=== PATIENT | female | born 1990 | race Hispanic/Latino ===

== ENCOUNTER 2016-09-22 20:56 | Emergency (ER) | payer OTHER ==
[~2016-09-22] VITALS: Ht 154.9 cm; Wt 87.1 kg
[2016-09-22] MEDS ORDERED: NS 1,000 ML IV SCH (21:34)
[2016-09-22] MEDS ORDERED: ONDANSETRON 4MG/2ML VIAL (J2405) IV ONE (21:45)
[2016-09-22] MEDS ORDERED: MORPHINE 2 MG/ML 1ML SYRINGE IV PRN (21:45)
[2016-09-22 22:09] LABS: BASO % 0.3 % (0.0-1.0); EOS # 0.1 K/mm3 (0.0-0.50); EOS % 1.2 % (0.0-3.0); LARGE UNSTAINED CELL # 0.1 K/mm3 (0.0-0.4); LARGE UNSTAINED CELL % 1.2 % (0.0-4.0); LYMPH # 2.8 K/mm3 (1.5-6.5); LYMPH % 33.8 % (24.0-44.0); MEAN CORPUSCULAR HEMOGLOBIN 31.7 pg (27.0-33.0); MEAN CORPUSCULAR HGB CONC 33.5 g/dl (32.0-36.5); MEAN CORPUSCULAR VOLUME 94.5 fl (80.0-96.0); MONO # 0.2 K/mm3 (0.0-0.8); MONO % 2.6 % (0.0-5.0); NEUTROPHILS # 5.1 K/mm3 (1.8-7.7); NEUTROPHILS % 60.8 % (36.0-66.0); PLATELET COUNT, AUTOMATED 285 k/mm3 (150-450); RED CELL DISTRIBUTION WIDTH 12.5 % (11.5-14.5); WHITE BLOOD COUNT 8.4 K/mm3 (4.0-10.0)
[2016-09-22 22:16] LABS: INR 0.92
[2016-09-22 22:27] LABS: CONTROL LINE HCG INT CTR LINE PRESENT
[2016-09-22 22:35] LABS: ALBUMIN 3.9 GM/DL (3.2-5.2); ALBUMIN/GLOBULIN RATIO 0.98 (1.00-1.93); ALKALINE PHOSPHATASE 95 U/L (45-117); ALT/SGPT 26 U/L (12-78); ANION GAP 6 MEQ/L (8-16); AST/SGOT 15 U/L (15-37); BILIRUBIN,DIRECT < 0.1 MG/DL (0.0-0.2); BILIRUBIN,TOTAL 0.2 MG/DL (0.2-1.0); BLOOD UREA NITROGEN 12 MG/DL (7-18); CALCIUM LEVEL 8.5 MG/DL (8.5-10.1); CARBON DIOXIDE LEVEL 30 MEQ/L (21-32); CHLORIDE LEVEL 103 MEQ/L (98-107); GLOMERULAR FILTRATION RATE > 60.0 (>60); GLUCOSE, FASTING 107 MG/DL (70-105); POTASSIUM SERUM 3.6 MEQ/L (3.5-5.1); SODIUM LEVEL 139 MEQ/L (136-145); TOTAL PROTEIN 7.9 GM/DL (6.4-8.2)
[2016-09-22] MEDS ORDERED: ZOFR4TAB3 PO (23:58)
[2016-09-23 00:05] VITALS: BP 118/66
--- NOTE | 2016-09-23 00:10 | REPUSA ---
Clinical history: Pain. Findings: Real-time transabdominal ultrasound images of the pelvis were obtained. An anteverted uteru s is noted, measuring 12.0 x 4.1 x 6.4 cm. The uterus demonstrates normal echotexture and echogenicit y. The endometrial stripe measures 8 mm and is within normal limits. The right ovary measures 3.7 x 1 .9 x 2.0 cm, containing a 1.5 cm follicle. The left ovary measures 2.9 x 1.8 x 1.5 cm. No adnexal mas ses are seen. Color Doppler flow is seen within both ovaries. There is no evidence of free fluid. Impression: Unremarkable ultrasound examination of the pelvis.
== END 2016-09-23 00:08 | disposition home or self-care (01) ==
LOC: M ED 21:32
DX: R10.31 Right lower quadrant pain (principal)
CPT/HCPCS: 76856; 80048; 80076; 81001; 83690; 84703; 85025; 85610; 87088; 87186; 96361; 96374; 96375; 99282; J2405

== ENCOUNTER 2017-08-27 00:46 | Emergency (ER) | payer OTHER ==
[2017-08-27] MEDS: NORCO 5/325MG TABLET (BULK FOR ED) PO (01:30)
[2017-08-27] MEDS: AUGMENTIN 875 MG TAB PO (01:30)
[2017-08-27] MEDS ORDERED: AUGMENTIN BID 400MG/5ML SUSP 50ML BTL PO (01:45)
== END 2017-08-27 01:46 | disposition home or self-care (01) ==
LOC: M ED 00:46
DX: H66.93 Otitis media, unspecified, bilateral (principal)
CPT/HCPCS: 99282

== ENCOUNTER → 2017-09-08 | Outpatient (REF) | payer OTHER | LOC: M SFHCLERA 17:37 | DX: B37.9 Candidiasis, unspecified (principal) | CPT/HCPCS: 87186 ==

== ENCOUNTER → 2018-02-14 | Outpatient (CLI) | payer OTHER ==
[2018-02-14 15:45] LABS: C REACTIVE PROTEIN QUANTITATIV 0.55 MG/DL (0.00-0.30)
[2018-02-14 15:47] LABS: ERYTHROCYTE SEDIMENTATION RATE 50 mm/hr (0-20)
[2018-02-16 14:10] LABS: TISSUE TRANSGLUTAMINASE IgA <2 U/mL (0-3)
[2018-02-19 08:06] LABS: IGASUB3 43.4 mg/dL (13.4-97.9); IgA SERUM (part of Subclasses) 345 mg/dL (87-352)
== END ==
LOC: M LAB 14:43
DX: R19.7 Diarrhea, unspecified (principal)
CPT/HCPCS: 82784

== ENCOUNTER → 2018-02-18 | Outpatient (REF) | payer OTHER ==
[2018-02-27 14:16] LABS: CALPROTECTIN STOOL <16 ug/g (0-120); O+P EXAM Final report (.)
[2018-02-27 14:16] LABS: PANCREATIC ELASTASE STOOL >500 (>200)
== END ==
LOC: M LAB REF 13:02
DX: R19.7 Diarrhea, unspecified (principal)

== ENCOUNTER 2018-03-08 08:47 | Day surgery (SDC) | payer OTHER ==
[~2018-03-08 08:47] MED LIST: NS 1,000 ML IV
[2018-03-08] MEDS ORDERED: PROPOFOL 200 MG/20 ML VIAL As Ordered ×3 (10:20→10:24)
[2018-03-08] MEDS ORDERED: LIDOCAINE 2% INJ 100 MG/5 ML SDV (FOR ANES.) As Ordered (10:20)
== END 2018-03-08 11:30 | disposition home or self-care (01) ==
LOC: M OPP 11:30
DX: R92.1 Mammographic calcification found on diagnostic imaging of breast (principal); K52.9 Noninfective gastroenteritis and colitis, unspecified; K62.89 Other specified diseases of anus and rectum; K64.8 Other hemorrhoids; K58.9 Irritable bowel syndrome, unspecified; F41.9 Anxiety disorder, unspecified
CPT/HCPCS: 45380

== ENCOUNTER 2018-03-13 15:00 | Day surgery (SDC) | payer OTHER ==
[2018-03-13 15:43] LABS: HEMATOCRIT 37.6 % (36.0-47.0); HEMOGLOBIN 12.6 g/dl (12.0-15.5); MEAN CORPUSCULAR HEMOGLOBIN 31.7 pg (27.0-33.0); MEAN CORPUSCULAR HGB CONC 33.5 g/dl (32.0-36.5); MEAN CORPUSCULAR VOLUME 94.5 fl (80.0-96.0); PLATELET COUNT, AUTOMATED 294 10^3/uL (150-450); RED BLOOD COUNT 3.98 10^6/uL (4.00-5.40); RED CELL DISTRIBUTION WIDTH 12.3 % (11.5-14.5); WHITE BLOOD COUNT 14.1 10^3/uL (4.0-10.0)
[2018-03-13] MEDS ORDERED: ACETAMINOPHEN 650 MG SUPP PR ×2 (15:45)
[2018-03-13 15:53] LABS: ANION GAP 9 MEQ/L (8-16); BLOOD UREA NITROGEN 8 MG/DL (7-18); CALCIUM LEVEL 8.9 MG/DL (8.5-10.1); CARBON DIOXIDE LEVEL 26 MEQ/L (21-32); CHLORIDE LEVEL 106 MEQ/L (98-107); CREATININE FOR GFR 0.69 MG/DL (0.55-1.30); GLOMERULAR FILTRATION RATE > 60.0 (>60); GLUCOSE, FASTING 102 MG/DL (70-100); POTASSIUM SERUM 3.7 MEQ/L (3.5-5.1); SODIUM LEVEL 141 MEQ/L (136-145)
[2018-03-13] MEDS: LR 1,000 ML IV ×2 (16:30)
[2018-03-13 16:45] LABS: CONTROL LINE UCG INT CTR LINE PRESENT; URINE PREG TEST NEGATIVE (NEGATIVE)
[2018-03-13] MEDS ORDERED: ACETAMINOPHEN TAB 650MG DOSE (2X325MG) As Ordered ×2 (17:43)
[2018-03-13] MEDS: ACETAMINOPHEN TAB 650MG DOSE (2X325MG) PO ×2 (17:50)
[2018-03-13] MEDS: GENTAMICIN 80 MG in APPROPRIATE DILUENT 1 EA IV (19:40)
[2018-03-13] MEDS ORDERED: dexameTHASONE 4 MG/ML 1ML VIAL (J1100) As Ordered ×2 (19:47)
[2018-03-13] MEDS ORDERED: MIDAZOLAM INJ 2 MG/2 ML VIAL (J2250) As Ordered ×2 (19:47)
[2018-03-13] MEDS ORDERED: PROPOFOL 200 MG/20 ML VIAL As Ordered ×2 (19:47)
[2018-03-13] MEDS ORDERED: KETOROLAC 60 MG/2 ML VIAL (J1885) As Ordered ×2 (19:47)
[2018-03-13] MEDS ORDERED: LIDOCAINE 2% INJ 100 MG/5 ML SDV (FOR ANES.) As Ordered ×2 (19:47)
[2018-03-13] MEDS ORDERED: ONDANSETRON 4MG/2ML VIAL (J2405) As Ordered ×2 (19:47)
[2018-03-13] MEDS ORDERED: fentaNYL 100 MCG/2 ML INJECTION (J3010) As Ordered ×2 (19:48)
[2018-03-13] MEDS: CLINDAMYCIN 900 MG in APPROPRIATE DILUENT 1 EA IV (20:30)
[2018-03-13] MEDS: BUPIVACAINE HCL 0.5% 10 ML VIAL As Ordered ×2 (21:21)
[2018-03-13] MEDS: LIDOCAINE 2% MDV 20 ML VIAL As Ordered ×2 (21:21)
[2018-03-13] MEDS ORDERED: ONDANSETRON 4MG/2ML VIAL (J2405) IV ×2 (21:45)
[2018-03-13] MEDS ORDERED: LR 1,000 ML IV ×2 (21:45)
[2018-03-13] MEDS ORDERED: fentaNYL 100 MCG/2 ML INJECTION (J3010) IV ×2 (21:45)
[2018-03-13] MEDS ORDERED: PERCOCET 5MG/325MG TAB PO ×2 (21:45)
[2018-03-13] MEDS ORDERED: KETOROLAC 30 MG/ML VIAL (J1885) IV ×2 (22:00)
== END 2018-03-13 23:05 | disposition home or self-care (01) ==
LOC: M SDC 23:05
DX: N75.0 Cyst of Bartholin's gland (principal); F41.9 Anxiety disorder, unspecified
CPT/HCPCS: 56440

== ENCOUNTER 2018-03-20 08:31 | Day surgery (SDC) | payer OTHER ==
[~2018-03-20 08:31] MED LIST changes: +LIDOCAINE 1% MDV 20ML VIAL SQ; -NS 1,000 ML IV
[2018-03-20 08:47] LABS: HEMATOCRIT 37.9 % (36.0-47.0); HEMOGLOBIN 12.7 g/dl (12.0-15.5); MEAN CORPUSCULAR HEMOGLOBIN 31.8 pg (27.0-33.0); MEAN CORPUSCULAR HGB CONC 33.5 g/dl (32.0-36.5); PLATELET COUNT, AUTOMATED 333 10^3/uL (150-450); RED BLOOD COUNT 3.99 10^6/uL (4.00-5.40); RED CELL DISTRIBUTION WIDTH 12.1 % (11.5-14.5); WHITE BLOOD COUNT 6.7 10^3/uL (4.0-10.0)
[2018-03-20] MEDS: LR 1,000 ML IV (09:04)
[2018-03-20] MEDS ORDERED: KETOROLAC 60 MG/2 ML VIAL (J1885) As Ordered (09:06)
[2018-03-20] MEDS ORDERED: dexameTHASONE 4 MG/ML 1ML VIAL (J1100) As Ordered (09:06)
[2018-03-20] MEDS ORDERED: PROPOFOL 200 MG/20 ML VIAL As Ordered (09:06)
[2018-03-20] MEDS ORDERED: ROCURONIUM BROMIDE 50 MG/5 ML VIAL As Ordered (09:06)
[2018-03-20] MEDS ORDERED: fentaNYL 250 MCG/5 ML INJECTION (J3010) As Ordered (09:06)
[2018-03-20] MEDS ORDERED: LIDOCAINE 2% INJ 100 MG/5 ML SDV (FOR ANES.) As Ordered (09:06)
[2018-03-20] MEDS ORDERED: ONDANSETRON 4MG/2ML VIAL (J2405) As Ordered (09:06)
[2018-03-20 09:07] LABS: CONTROL LINE HCG INT CTR LINE PRESENT; HCG, SERUM QUALITATIVE NEGATIVE (NEGATIVE)
[2018-03-20] MEDS ORDERED: MIDAZOLAM INJ 2 MG/2 ML VIAL (J2250) As Ordered (09:07)
[2018-03-20 09:12] LABS: ANION GAP 7 MEQ/L (8-16); BLOOD UREA NITROGEN 11 MG/DL (7-18); CALCIUM LEVEL 8.8 MG/DL (8.5-10.1); CARBON DIOXIDE LEVEL 28 MEQ/L (21-32); CHLORIDE LEVEL 107 MEQ/L (98-107); CREATININE FOR GFR 0.85 MG/DL (0.55-1.30); GLOMERULAR FILTRATION RATE > 60.0 (>60); GLUCOSE, FASTING 98 MG/DL (70-100); SODIUM LEVEL 142 MEQ/L (136-145)
[2018-03-20] MEDS ORDERED: NEOSTIGMINE 10 MG/10 ML VIAL (J2710) As Ordered (09:33)
[2018-03-20] MEDS ORDERED: GLYCOPYRROLATE INJ 0.2 MG/ML 2 ML VIAL As Ordered (09:33)
[2018-03-20] MEDS ORDERED: HYDROmorphone HCL 2 MG/ML 1ML VIAL (J1170) As Ordered (09:37)
[2018-03-20] MEDS: ACETAMINOPHEN 650 MG SUPP As Ordered (11:23)
[2018-03-20] MEDS: ceFAZolin SOD 1 GM in D5W MINI-BAG PLUS 50 ML IV (11:47)
[2018-03-20] MEDS: ACETAMINOPHEN 650 MG SUPP PR (12:01)
[2018-03-20] MEDS: BUPIVACAINE HCL 0.5% 10 ML VIAL As Ordered (12:30)
[2018-03-20] MEDS ORDERED: PERCOCET 5MG/325MG TAB PO (13:30)
[2018-03-20] MEDS ORDERED: fentaNYL 100 MCG/2 ML INJECTION (J3010) IV (13:30)
[2018-03-20] MEDS ORDERED: LR 1,000 ML IV (13:30)
[2018-03-20] MEDS ORDERED: MEPERIDINE INJ 25 MG/ML VIAL (J2175) IV (13:30)
[2018-03-20] MEDS ORDERED: ONDANSETRON 4MG/2ML VIAL (J2405) IV (13:30)
== END 2018-03-20 16:09 | disposition home or self-care (01) ==
LOC: M SDC 08:31
DX: N73.6 Female pelvic peritoneal adhesions (postinfective) (principal); K58.9 Irritable bowel syndrome, unspecified; Z79.899 Other long term (current) drug therapy
CPT/HCPCS: 58660

== ENCOUNTER → 2018-06-01 | Outpatient (REF) | payer OTHER ==
[~2018-06-01] MED LIST changes: +AUGM250S13 PO; +AUGM500T34 PO; -LIDOCAINE 1% MDV 20ML VIAL SQ; +SULFAMETHOXAZOLE-TMP; +ZOFR4TAB14 PO
== END ==
LOC: M SFHCLERA 10:05
PROVIDERS: ATTEND Nurse Practitioner Family
DX: J02.9 Acute pharyngitis, unspecified (principal)

== ENCOUNTER 2018-09-06 13:01 | Day surgery (SDC) | payer OTHER ==
[~2018-09-06] VITALS: Ht 154.9 cm; Wt 88.0 kg
[2018-09-06] MEDS: NS 1,000 ML IV ONE (06:15)
[~2018-09-06 13:01] MED LIST changes: +elderberry PO
[2018-09-06] MEDS ORDERED: LIDOCAINE 2% INJ 100 MG/5 ML SDV (FOR ANES.) As Ordered ONE (14:16)
[2018-09-06] MEDS ORDERED: PROPOFOL 200 MG/20 ML VIAL As Ordered ONE ×2 (14:16→14:53)
[2018-09-06] MEDS ORDERED: fentaNYL 100 MCG/2 ML INJECTION (J3010) As Ordered ONE (14:17)
[2018-09-06] MEDS ORDERED: ONDANSETRON 4MG/2ML VIAL (J2405) As Ordered ONE (14:53)
--- NOTE | 2018-09-06 15:10 | ROOR ---
Patient Name: Di Carrillo Procedure Date: 09/06/2018 2:38 PM Date of : 1990 Age: 28 Room: [facility] Gender: Female Note Status: Finalized Procedure: Upper GI endoscopy Indications: Heartburn, Suspected gastro-esophageal reflux disease Providers: Amarjit Smith MD Referring MD: VERNON JUNIOR MD Requesting Provider: Medicines: Monitored Anesthesia Care Complications: No immediate complications. Procedure: Pre-Anesthesia Assessment: - Prior to the procedure, a History and Physical was performed, and patient medications and allergies were reviewed. The patient is competent. The risks and benefits of the procedure and the sedation options and risks were discussed with the patient. All questions were answered and informed consent was obtained. Patient identification and proposed procedure were verified by the physician, the nurse and the anesthesiologist in the procedure room. Mental Status Examination: alert and oriented. Airway Examination: normal oropharyngeal airway and neck mobility. Respiratory Examination: clear to auscultation. CV Examination: normal. Prophylactic Antibiotics: The patient does not require prophylactic antibiotics. Prior Anticoagulants: The patient has taken no previous anticoagulant or antiplatelet agents. ASA Grade Assessment: II - A patient with mild systemic disease. After reviewing the risks and benefits, the patient was deemed in satisfactory condition to undergo the procedure. The anesthesia plan was to use monitored anesthesia care (MAC). Immediately prior to administration of medications, the patient was re-assessed for adequacy to receive sedatives. The heart rate, respiratory rate, oxygen saturations, blood pressure, adequacy of pulmonary ventilation, and response to care were monitored throughout the procedure. The physical status of the patient was re-assessed after the procedure. The Endoscope was introduced through the mouth, and advanced to the second part of duodenum. The upper GI endoscopy was accomplished without difficulty. The patient tolerated the procedure well. Findings: LA Grade B (one or more mucosal breaks greater than 5 mm, not extending between the tops of two mucosal folds) esophagitis with no bleeding was found in the distal esophagus. Biopsies were taken with a cold forceps for histology. Verification of patient identification for the specimen was done by the physician and nurse using the patient's name, date and medical record number. Estimated blood loss was minimal. Patchy mild inflammation characterized by erythema and granularity was found in the gastric body and in the gastric antrum. Biopsies were taken with a cold forceps for Helicobacter pylori testing. The duodenal bulb and second portion of the duodenum were normal. Impression: - LA Grade B reflux esophagitis. Biopsied. - Gastritis. Biopsied. - Normal duodenal bulb and second portion of the duodenum. Recommendation: - Patient has a contact number available for emergencies. The signs and symptoms of potential delayed complications were discussed with the patient. Return to normal activities tomorrow. Written discharge instructions were provided to the patient. - Resume previous diet. - Follow an antireflux regimen. - Use a proton pump inhibitor PO daily for 12 weeks. - Repeat upper endoscopy in 1 year for surveillance based on pathology results. - Based on the biopsy results you will receive a phone call from GI clinic in 2-3 weeks to review the pathology results AND/OR your results will be faxed to your Primary care physician. - Return to primary care physician. Amarjit Smith MD Amarjit Smith MD 09/06/2018 3:09:37 PM Electronically signed by Amarjit Smith MD Number of Addenda: 0 Note Initiated On: 09/06/2018 2:38 PM Estimated Blood Loss: Estimated blood loss was minimal.
[2018-09-06 15:20] VITALS: BP 140/84
== END 2018-09-06 15:30 | disposition home or self-care (01) ==
LOC: M OPP 13:01
PROVIDERS: ATTEND Internal Medicine Gastroenterology
DX: K21.0 Gastro-esophageal reflux disease with esophagitis (principal); K29.70 Gastritis, unspecified, without bleeding; R12 Heartburn
CPT/HCPCS: 43239; 88305; J2405; J3010